=== PATIENT | female | born 2005 ===

== ENCOUNTER 2023-10-24 06:12 | Day surgery (SDC) | payer BC, SELFPAY ==
[2023-10-24] VITALS (8 sets, daily range): BP systolic 122–142; BP diastolic 72–86; BMI 25.0
[2023-10-24 06:43] LABS: HCG, Urine Qualitative Screen Negative
[2023-10-24] MEDS: NORMOSOL-R 1000 IV (07:28)
[2023-10-24] MEDS: SUBLIMAZE 25 MCG IV (08:30)
[2023-10-24] MEDS: ROXICODONE ORAL SOLUTION 5 MG PO (09:27)
== END 2023-10-24 09:55 | disposition home or self-care (01) ==
LOC: SDS 06:12
PROVIDERS: ATTENDING PHYSICIAN Otolaryngology
DX: J35.03 Chronic tonsillitis and adenoiditis (principal)
CPT/HCPCS: 42821; 88304; 81025; 85018